=== PATIENT | female | born 1990 | race Caucasian/White ===

== ENCOUNTER 2017-09-21 05:21 | Day surgery (SDC) | payer MEDICAID ==
[~2017-09-21] VITALS: Ht 172.7 cm; Wt 117.9 kg
[2017-09-21] MEDS ORDERED: LIDOCAINE HCL/PF 1% 10 MG/ML 5ML VIAL ONE ×2 (06:47→07:57)
[2017-09-21] MEDS ORDERED: SKIN ADHESIVE 0.7 GM EA TOP ONE (06:47)
[2017-09-21] MEDS ORDERED: BUPIVACAINE HCL/PF 0.5% (5MG/ML) 10ML ONE (06:47)
[2017-09-21] MEDS ORDERED: NORMAL SALINE 0.9% 10 ML SYR ONE (07:12)
[2017-09-21] MEDS ORDERED: BACITRACIN 50,000 UNITS/VIAL ONE (07:12)
[2017-09-21 07:14] LABS: BASOPHILS % 0.5 % (0.0-2.0); EOSINOPHILS % 2.8 % (0.0-5.0); HEMATOCRIT. 39.5 % (36.0-48.0); LYMPHOCYTES % 29.7 % (20.0-50.0); MEAN CORPUSCULAR HEMOGLOBIN 26.1 pg (28.0-32.0); MEAN CORPUSCULAR VOLUME 79.2 fL (81.0-99.0); MONOCYTES % 8.7 % (2.0-8.0); NEUTROPHILS % 58.3 % (40.0-76.0); PLATELET 231 x1000/uL (130-400); RED BLOOD CELL COUNT 4.98 mill/uL (4.2-5.4); RED CELL DISTRIBUTION WIDTH 14.1 % (11.6-14.6)
[2017-09-21] MEDS ORDERED: LACTATED RINGERS 1,000 ML IV SCH (07:15)
[2017-09-21 07:21] LABS: CHLORIDE 109 mEq/L (98-107)
[2017-09-21 07:22] LABS: PARTIAL THROMBOPLASTIN TIME 26.4 sec (23.4-31.0)
[2017-09-21 07:40] LABS: UCG SCREEN NEGATIVE
[2017-09-21] MEDS ORDERED: MIDAZOLAM HCL 2 MG/2 ML VIAL ONE (07:56)
[2017-09-21] MEDS ORDERED: FENTANYL CITRATE/PF 50MCG/ML 2ML VIAL ONE ×2 (07:56→08:23)
[2017-09-21] MEDS ORDERED: PROPOFOL 200MG/20ML VIAL IV ONE ×2 (07:56→08:31)
[2017-09-21] MEDS ORDERED: ONDANSETRON HCL 4MG/2ML VIAL ONE (07:57)
[2017-09-21] MEDS ORDERED: SUCCINYLCHOLINE CHLORIDE 200MG/10ML VIAL IV ONE (07:57)
[2017-09-21] MEDS ORDERED: METOCLOPRAMIDE HCL 10MG/2ML VIAL ONE (07:57)
[2017-09-21] MEDS ORDERED: CEFAZOLIN SODIUM 1000MG/VIAL ONE (07:57)
[2017-09-21] MEDS ORDERED: GLYCOPYRROLATE 0.2 MG/ML 2ML VIAL ONE (07:57)
[2017-09-21] MEDS ORDERED: ROCURONIUM BROMIDE 10MG/ML VIAL 5ML IV ONE (08:19)
[2017-09-21] MEDS ORDERED: ALBUTEROL 90MCG/PUFF 17GM INHALER INH ONE (09:06)
[2017-09-21] MEDS ORDERED: SODIUM CHLORIDE 0.9% 1,000 ML IV ONE (09:35)
[2017-09-21] MEDS ORDERED: ONDANSETRON HCL 4MG/2ML VIAL IV PRN (09:45)
[2017-09-21] MEDS ORDERED: HYDROMORPHONE HCL/PF 2MG/ML CPJ IV PRN (09:45)
[2017-09-21] MEDS ORDERED: MORPHINE SULFATE 2 MG/ML CPJ (NOT FOR IM USE) IV PRN (09:45)
[2017-09-21] MEDS ORDERED: MEPERIDINE HCL/PF 25MG/ML CPJ IV PRN ×2 (09:45)
== END 2017-09-21 11:45 | disposition home or self-care (01) ==
LOC: OR 05:21 → ORIP 06:58 → UNDOADMIN 06:58 → OR 11:45
PROVIDERS: ATTEND Specialist
DX: N60.31 Fibrosclerosis of right breast (principal); N61.0 Mastitis without abscess; E66.01 Morbid (severe) obesity due to excess calories; Z68.39 Body mass index [BMI] 39.0-39.9, adult; Z79.899 Other long term (current) drug therapy; Z79.01 Long term (current) use of anticoagulants
CPT/HCPCS: 19301; 36415; 80048; 81025; 85025; 85610; 85730; 88307; A4216; G0168; J0330; J0690; J2250; J2405; J2765; J3010; J3490; J7120; J2704